=== PATIENT | female | born 1945 | race Caucasian/White ===

== ENCOUNTER 2017-05-26 17:36 | Inpatient (IN) | payer MEDICARE ==
[~2017-05-26] VITALS: Ht 180.3 cm; Wt 95.4 kg
[2017-05-26] MEDS ORDERED: PROP40TA PO (17:50)
[2017-05-26] MEDS ORDERED: SODIUM CHLORIDE 0.9% 1,000 ML IV ONE (18:13)
[2017-05-26] MEDS ORDERED: MORPHINE SULFATE 4 MG/ML, 1ML ONE (18:23)
[2017-05-26] MEDS ORDERED: ONDANSETRON 2MG/ML, 2ML ONE ×2 (18:23→20:02)
[2017-05-26] MEDS ORDERED: ONDANSETRON 2MG/ML, 2ML IVPush ONE (18:30)
[2017-05-26] MEDS ORDERED: SODIUM CHLORIDE FLUSH 10ML SYR IVF ONE (18:30)
[2017-05-26] MEDS ORDERED: MORPHINE SULFATE 4 MG/ML, 1ML IVPush PRN (18:30)
[2017-05-26 18:35] LABS: HEMATOCRIT 28.4 % (34.6-47.8); HEMOGLOBIN 9.5 g/dL (11.7-16.4); WHITE BLOOD COUNT 5.9 x10^3/uL (3.4-10)
[2017-05-26 18:49] LABS: ASPARTATE AMINO TRANSFERASE 15 U/L (15-37); BLOOD UREA NITROGEN 13 mg/dL (7-18)
[2017-05-26] MEDS ORDERED: FENTANYL PF 100 MCG/2ML ONE ×3 (19:40→21:11)
[2017-05-26] MEDS ORDERED: MIDAZOLAM 1 MG/ML, 2ML ONE (19:40)
[2017-05-26] MEDS ORDERED: TEMAZEPAM 15 MG CAPSULE PO PRN (20:00)
[2017-05-26] MEDS ORDERED: MEPERIDINE/PF 25MG/0.5ML IVPush PRN (20:00)
[2017-05-26] MEDS ORDERED: ENALAPRILAT 1.25 MG/ML, 2ML IVPush PRN (20:00)
[2017-05-26] MEDS ORDERED: ACETAMINOPHEN 325 MG TABLET PO PRN ×2 (20:00)
[2017-05-26] MEDS ORDERED: LABETALOL 5MG/ML, 20ML IVPush PRN (20:00)
[2017-05-26] MEDS ORDERED: LABETALOL 5MG/ML, 20ML IV PRN (20:00)
[2017-05-26] MEDS ORDERED: ONDANSETRON 2MG/ML, 2ML IVPush PRN ×2 (20:00)
[2017-05-26] MEDS ORDERED: OXYcodone 5 MG/5 ML ORAL.SOL UDC PO PRN (20:00)
[2017-05-26] MEDS ORDERED: HYDROmorphone 1 MG/ML, 1ML IV PRN (20:00)
[2017-05-26] MEDS ORDERED: hydrALAzine 20 MG/ML, 1ML IV PRN (20:00)
[2017-05-26] MEDS ORDERED: PROMETHAZINE 25 MG/ML, 1ML IV PRN (20:00)
[2017-05-26] MEDS ORDERED: DEXAMETHASONE 4 MG/ML, 5ML ONE (20:02)
[2017-05-26] MEDS ORDERED: PROPOFOL 10 MG/ML, 20ML ONE (20:02)
[2017-05-26] MEDS ORDERED: ROCURONIUM 10 MG/ML ONE (20:02)
[2017-05-26] MEDS ORDERED: GLYCOPYRROLATE 0.2MG/1ML, 5ML ONE (20:02)
[2017-05-26] MEDS ORDERED: NEOSTIGMINE 1 MG/ML, 10ML ONE (20:02)
[2017-05-26 20:16] LABS: TOTAL IRON BINDING CAPACITY 231 mcg/dL (250-450)
[2017-05-26 20:42] LABS: FERRITIN 87.8 ng/mL (8-252)
[2017-05-26] MEDS ORDERED: OXYcodone 5 MG/5 ML ORAL.SOL UDC ONE (21:11)
[2017-05-26] MEDS ORDERED: ACETAMINOPHEN 650 MG/20.3 ML UDC ONE (21:11)
[2017-05-26] MEDS: FENTANYL PF 100 MCG/2ML IV PRN ×3 (21:16→21:38)
[2017-05-27] MEDS: FAMOTIDINE 20 MG/2 ML IVPush SCH ×3 (00:03→21:07)
[2017-05-27] MEDS: morphine SULFATE 10 MG/ML, 1ML IVPush PRN (00:04)
[2017-05-27] MEDS: PROPRANOLOL 40 MG TABLET PO SCH ×3 (00:04→21:07)
[2017-05-27] MEDS: CEFAZOLIN PMX 2GM/50ML 50 ML IVPB SCH ×2 (00:04→08:12)
[2017-05-27 05:59] LABS: HEMATOCRIT 35.7 % (34.6-47.8); HEMOGLOBIN 11.9 g/dL (11.7-16.4); WHITE BLOOD COUNT 5.9 x10^3/uL (3.4-10)
[2017-05-27 06:14] LABS: ASPARTATE AMINO TRANSFERASE 16 U/L (15-37); BLOOD UREA NITROGEN 15 mg/dL (7-18)
[2017-05-27] MEDS: ENOXAPARIN 40 MG/0.4 ML SQ SCH (06:39)
[2017-05-27 07:28] VITALS: BP 129/64
[2017-05-27] MEDS: SENNA/DOCUSATE TABLET PO SCH (08:12)
[2017-05-27] MEDS: ONDANSETRON 2MG/ML, 2ML IVPush PRN (11:48)
[2017-05-27 14:00] VITALS: BP 148/69
[2017-05-27] MEDS: FERROUS SULFATE 325 MG TABLET PO SCH (17:11)
[2017-05-27 18:25] VITALS: BP 124/56
[2017-05-28] MEDS: ONDANSETRON 2MG/ML, 2ML IVPush PRN ×2 (01:15→14:08)
[2017-05-28] MEDS: HYDROcodone/APAP 5/325 TABLET PO PRN ×3 (01:15→21:27)
[2017-05-28 01:45] VITALS: BP 147/68
[2017-05-28 05:04] LABS: HEMATOCRIT 31.1 % (34.6-47.8); HEMOGLOBIN 10.4 g/dL (11.7-16.4); WHITE BLOOD COUNT 9.4 x10^3/uL (3.4-10)
[2017-05-28 05:16] LABS: BLOOD UREA NITROGEN 17 mg/dL (7-18)
[2017-05-28] MEDS: ENOXAPARIN 40 MG/0.4 ML SQ SCH (06:23)
[2017-05-28 07:10] VITALS: BP 157/72
[2017-05-28] MEDS: PROPRANOLOL 40 MG TABLET PO SCH ×2 (09:21→21:27)
[2017-05-28] MEDS: FAMOTIDINE 20 MG/2 ML IVPush SCH ×3 (09:22→21:27)
[2017-05-28] MEDS: FERROUS SULFATE 325 MG TABLET PO SCH ×2 (09:22→16:52)
[2017-05-28] MEDS: SENNA/DOCUSATE TABLET PO SCH (09:22)
[2017-05-28 13:11] VITALS: BP 144/74
[2017-05-28 19:21] VITALS: BP 143/68
[2017-05-28] MEDS: ONDANSETRON ODT 4 MG PO PRN (21:26)
[2017-05-28] MEDS: DOCUSATE 100 MG CAPSULE PO PRN (21:27)
[2017-05-29 02:58] VITALS: BP 136/70
[2017-05-29] MEDS: ENOXAPARIN 40 MG/0.4 ML SQ SCH (06:01)
[2017-05-29 07:11] VITALS: BP 144/71
[2017-05-29] MEDS: FAMOTIDINE 20 MG/2 ML IVPush SCH ×2 (09:14→20:29)
[2017-05-29] MEDS: SENNA/DOCUSATE TABLET PO SCH (09:14)
[2017-05-29] MEDS: PROPRANOLOL 40 MG TABLET PO SCH ×2 (09:14→20:29)
[2017-05-29] MEDS: FERROUS SULFATE 325 MG TABLET PO SCH ×2 (09:14→17:42)
[2017-05-29 13:33] VITALS: BP 147/77
[2017-05-29 20:28] VITALS: BP 161/71
[2017-05-30 00:41] VITALS: BP 144/70
[2017-05-30] MEDS ORDERED: ACETAMINOPHEN 325 MG TABLET PO PRN (01:00)
[2017-05-30] MEDS ORDERED: LABETALOL 5MG/ML, 20ML IVPush PRN (01:00)
[2017-05-30] MEDS ORDERED: ENALAPRILAT 1.25 MG/ML, 2ML IVPush PRN (01:00)
[2017-05-30] MEDS ORDERED: TEMAZEPAM 15 MG CAPSULE PO PRN (01:00)
[2017-05-30] MEDS: ENOXAPARIN 40 MG/0.4 ML SQ SCH (04:33)
[2017-05-30] MEDS: SENNA/DOCUSATE TABLET PO SCH (08:12)
[2017-05-30] MEDS: FERROUS SULFATE 325 MG TABLET PO SCH ×2 (08:12→17:00)
[2017-05-30] MEDS: PROPRANOLOL 40 MG TABLET PO SCH ×2 (08:12→20:59)
[2017-05-30] MEDS: FAMOTIDINE 20 MG/2 ML IVPush SCH ×2 (08:13→21:00)
[2017-05-30 08:25] VITALS: BP 159/76
[2017-05-30 14:00] VITALS: BP 148/72
[2017-05-30 21:00] VITALS: BP 145/74
[2017-05-31 02:15] VITALS: BP 169/71
[2017-05-31] MEDS: ENOXAPARIN 40 MG/0.4 ML SQ SCH (05:20)
[2017-05-31] MEDS: FAMOTIDINE 20 MG/2 ML IVPush SCH (08:34)
[2017-05-31 08:37] VITALS: BP 151/80
[2017-05-31] MEDS: FERROUS SULFATE 325 MG TABLET PO SCH ×2 (08:43→16:58)
[2017-05-31] MEDS: PROPRANOLOL 40 MG TABLET PO SCH ×2 (08:43→21:42)
[2017-05-31] MEDS: SENNA/DOCUSATE TABLET PO SCH (08:43)
[2017-05-31] MEDS: DOCUSATE 100 MG CAPSULE PO PRN ×2 (08:50→21:43)
[2017-05-31] MEDS ORDERED: BISACODYL 10 MG SUPP PR PRN (13:30)
[2017-05-31] MEDS: MAGNESIUM HYDROXIDE 8%, 30ML UDC PO PRN (13:38)
[2017-05-31 15:36] VITALS: BP 165/71
[2017-05-31] MEDS: POLYETHYLENE GLYCOL 17 GM PACKET PO PRN (16:58)
[2017-05-31 19:32] VITALS: BP 156/77
[2017-05-31] MEDS: FAMOTIDINE 20 MG TABLET PO SCH (21:00)
[2017-06-01 02:02] VITALS: BP 158/79
[2017-06-01] MEDS: ENOXAPARIN 40 MG/0.4 ML SQ SCH (05:03)
[2017-06-01 08:25] LABS: HEMOGLOBIN 11.6 g/dL (11.7-16.4); WHITE BLOOD COUNT 6.9 x10^3/uL (3.4-10)
[2017-06-01 08:32] LABS: BLOOD UREA NITROGEN 15 mg/dL (7-18)
[2017-06-01 08:55] VITALS: BP 161/75
[2017-06-01] MEDS: FAMOTIDINE 20 MG TABLET PO SCH ×2 (09:00→22:38)
[2017-06-01] MEDS: FERROUS SULFATE 325 MG TABLET PO SCH ×2 (09:29→17:26)
[2017-06-01] MEDS: SENNA/DOCUSATE TABLET PO SCH (09:29)
[2017-06-01] MEDS: PROPRANOLOL 40 MG TABLET PO SCH ×2 (09:29→22:37)
[2017-06-01 14:45] VITALS: BP 152/74
[2017-06-01 18:45] VITALS: BP 156/71
[2017-06-01] MEDS: DOCUSATE 100 MG CAPSULE PO PRN (22:56)
[2017-06-01] MEDS: POLYETHYLENE GLYCOL 17 GM PACKET PO PRN (22:56)
[2017-06-02 04:22] VITALS: BP 135/73
[2017-06-02] MEDS: ENOXAPARIN 40 MG/0.4 ML SQ SCH (05:56)
[2017-06-02 08:00] VITALS: BP 148/76
[2017-06-02] MEDS: FAMOTIDINE 20 MG TABLET PO SCH ×2 (09:00→20:26)
[2017-06-02] MEDS: FERROUS SULFATE 325 MG TABLET PO SCH ×2 (09:47→18:20)
[2017-06-02] MEDS: PROPRANOLOL 40 MG TABLET PO SCH ×2 (09:49→20:26)
[2017-06-02] MEDS: SENNA/DOCUSATE TABLET PO SCH (09:49)
[2017-06-02 15:37] VITALS: BP 145/74
[2017-06-02 20:00] VITALS: BP 173/68
[2017-06-03 02:31] VITALS: BP 159/72
[2017-06-03] MEDS: ENOXAPARIN 40 MG/0.4 ML SQ SCH (06:30)
[2017-06-03] MEDS: FAMOTIDINE 20 MG TABLET PO SCH ×2 (08:42→21:00)
[2017-06-03] MEDS: SENNA/DOCUSATE TABLET PO SCH (08:43)
[2017-06-03] MEDS: FERROUS SULFATE 325 MG TABLET PO SCH ×2 (08:43→16:30)
[2017-06-03] MEDS: PROPRANOLOL 40 MG TABLET PO SCH ×2 (08:43→21:00)
[2017-06-03 08:46] VITALS: BP 174/75
[2017-06-03 12:46] VITALS: BP 135/73
[2017-06-03 18:26] VITALS: BP 143/84
[2017-06-04 00:50] VITALS: BP 150/80
[2017-06-04 05:16] LABS: HEMATOCRIT 34.5 % (34.6-47.8); HEMOGLOBIN 11.4 g/dL (11.7-16.4); WHITE BLOOD COUNT 5.5 x10^3/uL (3.4-10)
[2017-06-04 05:26] LABS: BLOOD UREA NITROGEN 16 mg/dL (7-18)
[2017-06-04] MEDS: ENOXAPARIN 40 MG/0.4 ML SQ SCH (05:27)
[2017-06-04 07:48] VITALS: BP 150/78
[2017-06-04] MEDS: FERROUS SULFATE 325 MG TABLET PO SCH ×2 (08:52→16:59)
[2017-06-04] MEDS: PROPRANOLOL 40 MG TABLET PO SCH ×2 (08:53→21:52)
[2017-06-04] MEDS: FAMOTIDINE 20 MG TABLET PO SCH ×2 (08:53→21:52)
[2017-06-04] MEDS: SENNA/DOCUSATE TABLET PO SCH (08:53)
[2017-06-04] MEDS ORDERED: MIDAZOLAM 1 MG/ML, 2ML ONE (09:54)
[2017-06-04] MEDS ORDERED: FENTANYL PF 100 MCG/2ML ONE ×5 (09:54→17:20)
[2017-06-04] MEDS ORDERED: SCOPOLAMINE PATCH, 1.5MG PATCH.TD72 TD ONE ×2 (11:18→11:30)
[2017-06-04] MEDS: LACTATED RINGERS 1,000 ML IV SCH ×2 (11:23→19:34)
[2017-06-04] MEDS ORDERED: OXYcodone 5 MG/5 ML ORAL.SOL UDC PO PRN (11:30)
[2017-06-04] MEDS ORDERED: ACETAMINOPHEN 325 MG TABLET PO PRN (11:30)
[2017-06-04] MEDS ORDERED: LABETALOL 5MG/ML, 20ML IV PRN (11:30)
[2017-06-04] MEDS ORDERED: MEPERIDINE/PF 25MG/0.5ML IVPush PRN (11:30)
[2017-06-04] MEDS ORDERED: PROMETHAZINE 25 MG/ML, 1ML IV PRN (11:30)
[2017-06-04] MEDS ORDERED: ONDANSETRON 2MG/ML, 2ML IVPush PRN (11:30)
[2017-06-04] MEDS ORDERED: ONDANSETRON 2MG/ML, 2ML ONE ×2 (13:29→17:21)
[2017-06-04] MEDS ORDERED: ROCURONIUM 10 MG/ML ONE (13:29)
[2017-06-04] MEDS ORDERED: DEXAMETHASONE 4 MG/ML, 1ML ONE (13:29)
[2017-06-04] MEDS ORDERED: PROPOFOL 10 MG/ML, 20ML ONE (13:29)
[2017-06-04] MEDS ORDERED: LABETALOL 5MG/ML 40ML VIAL ONE (13:29)
[2017-06-04] MEDS ORDERED: GLYCOPYRROLATE 0.2MG/1ML, 5ML ONE (13:29)
[2017-06-04] MEDS ORDERED: NEOSTIGMINE 1 MG/ML, 10ML ONE (13:29)
[2017-06-04] MEDS ORDERED: CEFAZOLIN 1,000 MG ONE (13:29)
[2017-06-04] MEDS ORDERED: ACETAMINOPHEN 650 MG/20.3 ML UDC ONE (17:20)
[2017-06-04] MEDS ORDERED: OXYcodone 5 MG/5 ML ORAL.SOL UDC ONE (17:21)
[2017-06-04] MEDS ORDERED: HYDROmorphone 1 MG/ML, 1ML ONE ×2 (17:21→18:10)
[2017-06-04] MEDS ORDERED: PROMETHAZINE 25 MG/ML, 1ML ONE (17:21)
[2017-06-04] MEDS ORDERED: hydrALAzine 20 MG/ML, 1ML ONE (17:26)
[2017-06-04] MEDS: hydrALAzine 20 MG/ML, 1ML IV PRN ×2 (17:27→18:11)
[2017-06-04] MEDS: HYDROmorphone 1 MG/ML, 1ML IV PRN ×4 (17:30→18:30)
[2017-06-04] MEDS: FENTANYL PF 100 MCG/2ML IV PRN ×2 (17:32→18:09)
[2017-06-04 19:04] VITALS: BP 148/71
[2017-06-04] MEDS: CEFAZOLIN PMX 2GM/50ML 50 ML IVPB SCH (21:52)
[2017-06-04] MEDS: ONDANSETRON 2MG/ML, 2ML IVPush PRN (22:12)
[2017-06-04] MEDS: morphine SULFATE 10 MG/ML, 1ML IVPush PRN (22:12)
[2017-06-04 23:15] VITALS: BP 140/68
[2017-06-05] MEDS: ONDANSETRON ODT 4 MG PO PRN (02:52)
[2017-06-05] MEDS: HYDROcodone/APAP 5/325 TABLET PO PRN ×4 (02:52→17:50)
[2017-06-05 03:15] VITALS: BP 149/73
[2017-06-05] MEDS: LACTATED RINGERS 1,000 ML IV SCH (05:19)
[2017-06-05] MEDS: ENOXAPARIN 40 MG/0.4 ML SQ SCH (05:52)
[2017-06-05] MEDS: CEFAZOLIN PMX 2GM/50ML 50 ML IVPB SCH (05:52)
[2017-06-05] MEDS: FAMOTIDINE 20 MG TABLET PO SCH (08:58)
[2017-06-05] MEDS: FERROUS SULFATE 325 MG TABLET PO SCH ×2 (08:58→16:58)
[2017-06-05] MEDS: PROPRANOLOL 40 MG TABLET PO SCH ×2 (08:58→21:10)
[2017-06-05] MEDS: SENNA/DOCUSATE TABLET PO SCH (08:59)
[2017-06-05] MEDS: ONDANSETRON 2MG/ML, 2ML IVPush PRN ×3 (09:05→17:50)
[2017-06-05 09:06] VITALS: BP 150/64
[2017-06-05 14:28] VITALS: BP 144/64
[2017-06-05] MEDS ORDERED: MAGNESIUM HYDROXIDE 8%, 30ML UDC PO PRN ×2 (17:00→19:30)
[2017-06-05] MEDS ORDERED: ENALAPRILAT 1.25 MG/ML, 2ML IVPush PRN ×2 (19:30)
[2017-06-05] MEDS ORDERED: ACETAMINOPHEN 325 MG TABLET PO PRN ×2 (19:30→20:00)
[2017-06-05] MEDS ORDERED: LABETALOL 5MG/ML, 20ML IVPush PRN ×2 (19:30)
[2017-06-05 21:10] VITALS: BP 141/60
[2017-06-06 02:38] VITALS: BP 137/53
[2017-06-06 05:15] LABS: HEMATOCRIT 29.8 % (34.6-47.8); HEMOGLOBIN 10.1 g/dL (11.7-16.4); WHITE BLOOD COUNT 7.1 x10^3/uL (3.4-10)
[2017-06-06 05:20] LABS: ASPARTATE AMINO TRANSFERASE 20 U/L (15-37); BLOOD UREA NITROGEN 12 mg/dL (7-18)
[2017-06-06] MEDS: ENOXAPARIN 40 MG/0.4 ML SQ SCH (06:00)
[2017-06-06 08:10] VITALS: BP 154/66
[2017-06-06] MEDS: FERROUS SULFATE 325 MG TABLET PO SCH ×2 (08:46→17:37)
[2017-06-06] MEDS: CYANOCOBALAMIN 1,000 MCG/ML, 1ML IM SCH (08:47)
[2017-06-06] MEDS: PROPRANOLOL 40 MG TABLET PO SCH ×2 (08:47→21:07)
[2017-06-06] MEDS: SENNA/DOCUSATE TABLET PO SCH (08:47)
[2017-06-06] MEDS ORDERED: CYANOCOBALAMIN 1,000 MCG/ML, 1ML IM SCH ×2 (09:00)
[2017-06-06 14:31] VITALS: BP 150/64
[2017-06-06 19:30] VITALS: BP 124/65
[2017-06-07 02:22] VITALS: BP 141/66
[2017-06-07 05:03] LABS: HEMATOCRIT 31.9 % (34.6-47.8); HEMOGLOBIN 10.6 g/dL (11.7-16.4); WHITE BLOOD COUNT 6.9 x10^3/uL (3.4-10)
[2017-06-07 05:19] LABS: BLOOD UREA NITROGEN 13 mg/dL (7-18)
[2017-06-07] MEDS: ENOXAPARIN 40 MG/0.4 ML SQ SCH (06:21)
[2017-06-07 07:14] VITALS: BP 138/65
[2017-06-07] MEDS: PROPRANOLOL 40 MG TABLET PO SCH (08:18)
[2017-06-07] MEDS: SENNA/DOCUSATE TABLET PO SCH (08:18)
[2017-06-07] MEDS: FERROUS SULFATE 325 MG TABLET PO SCH (08:18)
[2017-06-07] MEDS: CYANOCOBALAMIN 1,000 MCG/ML, 1ML IM SCH (08:19)
[2017-06-07] MEDS: MAGNESIUM HYDROXIDE 8%, 30ML UDC PO PRN (08:21)
[2017-06-07] MEDS ORDERED: SCOPOLAMINE PATCH, 1.5MG PATCH.TD72 TD ONE (11:18)
[2017-06-07] MEDS ORDERED: ONDA4TAB13 PO (13:13)
[2017-06-07] MEDS ORDERED: MAGN400O7 PO (13:13)
[2017-06-07] MEDS ORDERED: CYAN10002 IM (13:13)
[2017-06-07] MEDS ORDERED: ACET325T14 PO (13:13)
[2017-06-07] MEDS ORDERED: DOCU-131 PO (13:13)
[2017-06-07] MEDS ORDERED: FERR-36 PO (13:13)
[2017-06-07] MEDS ORDERED: ENOX40SY4 SQ (13:13)
[2017-06-07 14:04] VITALS: BP 133/59
== END 2017-06-07 14:30 | disposition home or self-care (01) | DRG 493 ==
LOC: ED 18:23 → EDIP 18:24 → ED 18:34 → 4NOR 22:14
PROVIDERS: ADMIT Internal Medicine; ATTEND Internal Medicine
PROC: 0QSH3BZ Reposition Left Tibia with Monoplanar External Fixation Device, Percutaneous Approach (ICD-10-PCS; 2017-05-26)
PROC: 0QSH04Z Reposition Left Tibia with Internal Fixation Device, Open Approach (ICD-10-PCS; principal; 2017-06-02)
PROC: 0SP Lower Joints, Removal (ICD-10-PCS; 2017-06-02)
DX: S82.142A Displaced bicondylar fracture of left tibia, initial encounter for closed fracture (principal); E44.1 Mild protein-calorie malnutrition; D63.8 Anemia in other chronic diseases classified elsewhere; I48.91 Unspecified atrial fibrillation; E53.8 Deficiency of other specified B group vitamins; E86.0 Dehydration; I10 Essential (primary) hypertension; W18.30XA Fall on same level, unspecified, initial encounter; I34.1 Nonrheumatic mitral (valve) prolapse; D50.9 Iron deficiency anemia, unspecified; E66.9 Obesity, unspecified; E83.51 Hypocalcemia; E87.6 Hypokalemia; G89.11 Acute pain due to trauma; M21.069 Valgus deformity, not elsewhere classified, unspecified knee; Y93.89 Activity, other specified; Y92.89 Other specified places as the place of occurrence of the external cause; Z68.29 Body mass index [BMI] 29.0-29.9, adult
CPT/HCPCS: 29515; 36415; 76001; 80048; 80053; 82330; 82607; 82728; 82746; 83540; 83550; 83735; 84100; 85025; 85045; 85610; 85730; 93005; 96374; 96375; C1713; J0690; J1100; J1170; J1650; J2250; J2405; J2550; J2704; J2710; J3010; J3490; Q0162; C1762; J0360; J2270; J3420; J7030; J7120; S0028